=== PATIENT | female | born 1945 | race Caucasian/White ===

== ENCOUNTER 2020-07-03 08:55 | Outpatient (CLI) | payer MEDICARE, OTHER, SELFPAY ==
--- NOTE | ~2020-07-03 | XR_ITS ---
EXAMINATION: XR chest 2V DATE: 07/03/2020 10:11 INDICATION: Shortness of breath TECHNIQUE: PA and lateral views of the chest are obtained. COMPARISON: None available FINDINGS: There are minimal airspace opacities of the lower lobes. There is no pleural effusion or pn eumothorax. The cardiomediastinal silhouette is normal. There is mild thoracic spondylosis. IMPRESSION: 1. Bibasilar airspace opacities, consistent with atelectasis versus pneumonia. Reviewed, dictated and finalized at location A.
--- NOTE | 2020-07-03 10:50 | ECG_ITS ---
Measurements Intervals [place] Rate: 60 P: 53 CO: 220 QRS: 91 QRSD: 98 T: 55 QT: 375 QTc: 377 Interpretive Statements SINUS RHYTHM WITH FIRST DEGREE AV BLOCK RIGHT AXIS DEVIATION INCOMPLETE RIGHT BUNDLE BRANCH BLOCK ABNORMAL ECG Electronically Signed On 07-03-2020 9:48:59 CDT by William Arguello D.O.
--- NOTE | 2020-07-03 12:13 | P.PCNPFT_ITS ---
PFT Interpretation PFT Interpretation: DOS: 07/03/2020 REQUESTING: Drew Burns MD REASON FOR TESTING: Dyspnea PULMONARY FUNCTION TESTS Results are reproducible and reliable. Spirometry: FEV1 is 86%, 1.68 L, normal. FVC is 81%, normal. FEV1% is normal, 85%. Minimal change after bronchodilator which is not statistically si gnificant. Lung volumes: Total lung capacity 89%, normal. RV 107% normal. RV/TLC is increased 49% consistent with air trapping. Increased airway resistance. Diffusion: DLCO 43% moderately reduced. Flow volume loop: Mild scooping of the expiratory limb. IMPRESSION: This study shows normal spirometry without response to bronchodilator, mild air trapping which implies an obstructive process and increased airway resistance. There is a significant decrease in diffusion which is the most significant abnormality. Isolated decreased in diffusion can be seen in anemia, smoking, and pulmonary vascular diseases such as chronic recurrent pulmonary emboli or pulmonary arterial hypertension. Other conditions with isolated low DLCO include early ILD and hepatopulmonary syndrome. Clinical karin elation is recommended. Iva Martinez MD
== END 2020-07-03 08:56 | disposition home or self-care (01) ==
PROVIDERS: PCP Family Medicine; Visit Provider Family Medicine
DX: R06.00 Dyspnea, unspecified (principal)
CPT/HCPCS: 71046; 93005; 94060; 94726; 94729

== ENCOUNTER 2024-06-03 11:39 | Outpatient (CLI) | payer MEDICARE, SELFPAY ==
--- NOTE | ~2024-06-03 | XR_ITS ---
EXAMINATION: XR knee LT 3V, XR knee RT 3V DATE: 06/03/2024 12:14 INDICATION: Chronic bilateral knee pain TECHNIQUE: 1. AP, lateral and sunrise views of the left knee were obtained. 2. AP, lateral and sunrise views of the right knee were obtained. COMPARISON: None. FINDINGS: Right knee: Mild genu valgus with severe joint space narrowing the lateral compartment but appreciated on the lat eral projection and mild joint space narrowing the medial compartment. There is also severe joint spa ce narrowing at the lateral side of the patellofemoral compartment with 5 mm lateral subluxation of t he patella relative to the trochlea. No fracture. Small enthesophyte at the proximal patella. Small r ight knee joint effusion. Left knee: Alignment is normal. No fracture. There is similar severe joint space narrowing at the lateral patell ofemoral compartment with 4 mm lateral patellar subluxation. Moderate joint space narrowing the media l compartment. Lateral compartment joint space appears relatively preserved with small marginal osteo phytes. Moderate-sized enthesophyte at the proximal patella. No left knee joint effusion. IMPRESSION: 1. Tricompartmental osteoarthritis of both knees, severe at the bilateral patellofemoral and right la teral compartments, moderate at the right medial compartment and mild at the left lateral and right m edial compartments. Reviewed, dictated and finalized at location B. IMPRESSION: 1. Tricompartmental osteoarthritis of both knees, severe at the bilateral fitzgerald lofemoral and right lateral compartments, moderate at the right medial compartm ent and mild at the left lateral and right medial compartments.
--- NOTE | ~2024-06-03 | XR_ITS ---
EXAMINATION: XR lumbar spine 2-3V DATE: 06/03/2024 12:14 INDICATION: Chronic low back pain TECHNIQUE: Anteroposterior and lateral views of the lumbar spine, and cone-down lateral view of the l umbosacral junction were obtained. COMPARISON: None. FINDINGS: Partially lumbarized S1 segment. There is 3 mm anterolisthesis L5 on S1. Vertebral body heights are n ormal. Moderate disc height loss at L4-L5 and L5-S1. Mild disc height loss at T12-L1 through L3-L4. T here is severe lower lumbar facet osteoarthritis. Mild bilateral hip and sacroiliac osteoarthritis. M oderate osteitis pubis. IMPRESSION: 1. Moderate lumbar spondylosis. Reviewed, dictated and finalized at location B.
[2024-06-03 11:59] LABS: Basophils Absolute Auto 0.07 K/mm3 (0.00-0.10); Eosinophils Absolute Auto 0.19 K/mm3 (0.02-0.50); Eosinophils Percent Auto 2.8 % (1.0-6.0); Hematocrit 28.8 % (35.0-42.0); Hemoglobin 9.8 g/dL (11.7-13.8); Immature Granulocyte Absolute 0.02 K/mm3 (0.00-0.00); Immature Granulocyte Percent A 0.3 % (0.0-0.0); Lymphocytes Absolute Auto 2.22 K/mm3 (1.10-4.50); Lymphocytes Percent Auto 32.5 % (18.0-42.0); Mean Corpuscular Volume 91.1 fL (78.0-102.0); Mean Platelet Volume 10.4 fl (9.2-11.8); Monocytes Absolute Auto 0.65 K/mm3 (0.10-0.90); Monocytes Percent Auto 9.5 % (2.0-11.0); Neutrophils Absolute Auto 3.69 K/mm3 (1.70-7.20); Neutrophils Percent Auto 53.9 % (50.0-70.0); Platelet Count Result 265 K/mm3 (150-420); Red Blood Count 3.16 M/mm3 (4.20-5.40); Red Cell Distribution Width 11.4 % (11.6-14.4); White Blood Count 6.8 K/mm3 (4.8-10.8)
[2024-06-03 13:44] LABS: Add Urine Microscopic? YES; Bilirubin Urine Negative (Negative); Blood Urine 1+ (Negative); Color Urine Light Yellow (Yellow); Glucose Urine UA Negative (Negative); Ketones Urine Negative (Negative); Leukocyte Esterase Ur 1+ (Negative); Nitrate Urine Negative (Negative); Protein Urine 3+ (Negative); Urobilinogen Urine 0.2 mg/dL (0.2-1.0)
[2024-06-03 13:54] LABS: Appearance Urine Sl Cloudy (Clear); Bacteria Urine 2+ /hpf; Squamous Epithelial Cell Urine Few /hpf (Few); WBC Urine 16-20 /hpf (0-3)
[2024-06-03 14:37] LABS: Alanine Aminotransferase 22 U/L (14-59); Albumin Level 3.1 g/dL (3.4-5.0); Alkaline Phosphatase 92 U/L (46-116); Anion Gap 7 mmol/L (4-12); Aspartate Amino Transferase 14 U/L (15-37); Bilirubin,Total 0.6 mg/dL (0.00-1.00); Blood Urea Nitrogen 49 mg/dL (7-18); Calcium 9.1 mg/dL (8.5-10.1); Carbon Dioxide 25 mmol/L (21-32); Chloride 108 mmol/L (98-108); Estimated Glomerular Filt Rate 26; Ferritin 106 ng/mL (8-252); Glucose 105 mg/dL (70-99); Iron 75 ug/dL (50-170); Osmolality Calculated 303 mOsm/kg (285-295); Percent Iron Saturation 27 % (12-57); Potassium 4.7 mmol/L (3.5-5.1); Sodium 140 mmol/L (136-145); Thyroid Stimulating Hormone 2.36 uIU/mL (0.36-3.74); Total Protein 5.8 g/dL (6.4-8.2)
[2024-06-03 15:35] LABS: Creatinine Urine 51.47 mg/dL (40-278); MALB Creatinine Ratio 777.1 mg/g (0-30); Microalbumin Urine Random > 400.0 mg/L
[2024-06-04 08:08] LABS: Vitamin D 25 Hydroxy 48 ng/mL (30-100)
[2024-06-07 16:19] LABS: Folic Acid 17.5 ng/mL (8.6->20); Vitamin B12 613 pg/mL (193-986)
== END 2024-06-03 11:40 | disposition home or self-care (01) ==
LOC: CHSLAB 11:44
PROVIDERS: PCP Family Medicine; Visit Provider Family Medicine
DX: I10 Essential (primary) hypertension (principal); E55.9 Vitamin D deficiency, unspecified; M54.50 Low back pain, unspecified; M25.569 Pain in unspecified knee; D64.9 Anemia, unspecified; M17.0 Bilateral primary osteoarthritis of knee; M43.06 Spondylolysis, lumbar region
CPT/HCPCS: 36415; 72100; 73562; 80053; 81001; 82043; 82306; 82607; 82728; 82746; 83540; 83550; 84443; 85025

== ENCOUNTER 2024-10-25 13:56 | Outpatient (RCR) | payer MEDICARE, SELFPAY ==
--- NOTE | 2024-10-25 15:47 | PTOPEVAL1 ---
Assessment and note entered by Rina Rivera DPT Evaluation Information Assessment Status Evaluation Diagnosis low back pain, B knee pain, weakness Onset 10/25/24 Subjective Information Patient reports low back and leg pain that causes her to bend forward when she walks. She reports the L side hurts worse. She reports this has been going on for a few years and is getting worse. She reports she gets shoulder pain from leaning on the cane. she reports she uses the cane outside of the house but furniture walks in the house. She denies falls. She reports difficulty with completing house hold tasks, getting into and out of the car, standing for long periods of time, and difficulty sleeping. Reported Pain Level Pain Score 9: Self Report Assessment PT Clinical Summary Mrs. Salcedo is a 79 year old female who presents to PT with weakness and pain located at the back, knees, shoulder and neck. She demonstrate decreased lumbar ROM, decreased B LE strength, impaired posture and impaired gait limiting her ability to complete house hold tasks, get into and out of the car, stand for long periods of time, and difficulty sleeping. She would benefit from skilled PT to address impairments and return to PLOF. Plan of Care Interventions Electrical Stimulation,Gait Training PT Services Indicated Yes Treatment Frequency and 2x weekly for 12 visits Duration These treatments will address the objective and functional deficits as defined above. The patient will be advanced safely and appropriately in order for the patient to progress towards his/her prior level of function. Additional exercises will be introduced and as well as a comprehensive home exercise program upon discharge, if needed, ?to ensure carryover of functional gains achieved in the clinic. This treatment plan has been reviewed and agreement upon by the patient.
--- NOTE | 2024-11-03 12:49 | PCPTNOTE ---
Not going to be able to come today. Tried to call pt back to reschedule, but went to voicemail.
== END 2025-01-23 23:59 | disposition home or self-care (01) ==
LOC: CHSPT 13:56
PROVIDERS: Visit Provider Family Medicine
DX: M54.50 Low back pain, unspecified (principal); R26.81 Unsteadiness on feet
CPT/HCPCS: 97014; 97110; 97161; 97530; G0283